=== PATIENT | male | born 1960 | race Caucasian/White ===

== ENCOUNTER 2016-05-22 13:12 | Emergency (ER) | payer SELFPAY ==
--- NOTE | 2016-05-22 14:26 | ER Document Report ---
ED Medical Screen (RME) - General Chief Complaint: Post Surgical Pain Stated Complaint: POSSIBLE INFECTION Mode of Arrival: Ambulatory Information source: Patient Notes: Patient is complaining of upper chest pain, low back pain and pain at incision site in epigastric region. He has had pain for the past week - the pain started as sharp severe intermittent pain in his lower back that has relieved some. The chest pain is described as dull, intermittent, worse with movement. He has history of bypass surgery done [place] [facility] [place] The pain at the incision site in upper abdomen that he states is from one of the chest tubes - dark yellow pus noted, causing them to change the bandages 3-4 times/daily. endorses associated erythema, swelling and pain but denies bleeding from site. Associated symptoms include fever (Tmax 101), chills, nausea, SOB, vomiting x1 episode, diarrhea ut denies dysuria. He has tried aleve, ibuprofen and tylenol which is not providing relief. Currently on plavix. TRAVEL OUTSIDE OF THE U[place]S. IN LAST 30 DAYS: No - Related Data Allergies/Adverse Reactions: Penicillins Allergy (Unknown, Verified 05/22/16 13:21) Past Medical History - Past Medical History Cardiac Medical History: Reports: Hx Hypercholesterolemia, Hx Hypertension Denies: Hx Coronary Artery Disease Traumatic Medical History: Reports: Hx Fractures - skull Past Surgical History: Reports: Other - bladder - Immunizations Hx Diphtheria, Pertussis, Tetanus Vaccination: No Review of Systems - Review of Systems Constitutional: See HPI Cardiovascular: See HPI Respiratory: See HPI Skin: See HPI Physical Exam - Vital signs Vitals: Temp Pulse Resp BP Pulse Ox 97.4 F 75 20 159/87 H 98 05/22/16 13:17 05/22/16 13:17 05/22/16 13:17 05/22/16 13:17 05/22/16 13:17 - Notes Notes: General: appears comfortable, steady gait, VSS. Skin: Multiple incisional scars noted to upper chest and abdomen. 1.5 cm incision noted with erythema, yellow drainage, warmth and tender to palpation. Course - Re-evaluation Re-evalutation: 05/22/16 14:28 Patient seen and examined. VSS. Significant cardiac history with recent CABG on 04/26/16. Ordered lab work, ekg, chest xray. Currently on plavix. - Vital Signs Vital signs: Temp Pulse Resp BP Pulse Ox 97.4 F 75 20 159/87 H 98 05/22/16 13:17 05/22/16 13:17 05/22/16 13:17 05/22/16 13:17 05/22/16 13:17
[2016-05-22] MEDS ORDERED: ACETAMINOPHEN 325 MG TABLET PO ONE (14:30)
--- NOTE | 2016-05-22 15:32 | ER Document Report ---
ED General - General Chief Complaint: Post Surgical Pain Stated Complaint: POSSIBLE INFECTION Time seen by provider: 15:27 Mode of Arrival: Ambulatory Information source: Patient, Relative TRAVEL OUTSIDE OF THE U.S. IN LAST 30 DAYS: No - HPI Onset: Other - pt states he has had pus draining from one of the incision sites from the CABG surgery he had last month at [facility]. He denies fever. He has had brief twinges of chest discomfort after the surgery but nothing sustained. Has had some "kidney pain " over the past few days, but denies dysuria, hematuria - Related Data Allergies/Adverse Reactions: Penicillins Allergy (Unknown, Verified 05/22/16 13:21) Sulfa (Sulfonamide Antibiotics) Allergy (Verified 05/22/16 15:59) Past Medical History - General Information source: Patient, Relative - Social History Smoking Status: Former Smoker Cigarette use (# per day): No Chew tobacco use (# tins/day): No Smoking Education Provided: No Family History: CAD - Past Medical History Cardiac Medical History: Reports: Hx Hypercholesterolemia, Hx Hypertension Denies: Hx Coronary Artery Disease Traumatic Medical History: Reports: Hx Fractures - skull Past Surgical History: Reports: Other - bladder - Immunizations Hx Diphtheria, Pertussis, Tetanus Vaccination: No Review of Systems - Review of Systems Constitutional: No symptoms reported Cardiovascular: See HPI, Chest pain Respiratory: No symptoms reported Gastrointestinal: No symptoms reported Musculoskeletal: No symptoms reported Skin: See HPI, Other - draining wound Neurological/Psychological: No symptoms reported -: Yes All other systems reviewed and negative Physical Exam - Vital signs Vitals: Temp Pulse Resp BP Pulse Ox 97.4 F 75 20 159/87 H 98 05/22/16 13:17 05/22/16 13:17 05/22/16 13:17 05/22/16 13:17 05/22/16 13:17 - General General appearance: Appears well In distress: None - HEENT Pharynx: Normal Neck: Normal - Respiratory Respiratory status: No respiratory distress Chest status: Nontender Breath sounds: Normal Chest palpation: Other - there is a 2 cm post-op wound with yellow borders and small amount of yellow pus at the entrance. We will do wound culture today. The other post-op woounds on the chest and healing well without signs of infection. - Cardiovascular Rhythm: Regular Heart sounds: Normal auscultation - Abdominal Inspection: Normal Tenderness: Nontender - Back Back: Normal - Extremities General upper extremity: Normal inspection General lower extremity: Normal inspection - Neurological Neuro grossly intact: Yes Cognition: Normal Orientation: AAOx4 Speech: Normal Course - Re-evaluation Re-evalutation: 05/22/16 16:59 pt's exam unchanged -- we will give him a parenteral dose of abc here -- he has expressed desire to go home - Vital Signs Vital signs: Temp Pulse Resp BP Pulse Ox 97.4 F 75 14 160/89 H 99 05/22/16 13:17 05/22/16 13:17 05/22/16 15:34 05/22/16 15:34 05/22/16 15:34 - Laboratory Result Diagrams: 05/22/16 15:20 05/22/16 15:20 Laboratory results interpreted by me: 05/22/16 05/22/16 05/22/16 15:20 15:20 15:50 WBC 12.7 H RBC 4.32 L Hgb 12.4 L Hct 36.4 L Eosinophils % 17.3 H Absolute Eosinophils 2.2 H Sodium 145.8 H Urine Protein 30 H Urine Ketones TRACE H Urine Urobilinogen 2.0 H Ur Leukocyte Esterase TRACE H - EKG Interpretation by Nj EKG shows normal: Sinus rhythm - nsr with inverted T waves in V1 and 2 but no acute change Discharge - Discharge Clinical Impression: Post-operative infection Qualifiers: Encounter type: initial encounter Qualified Code(s): T81.4XXA - Infection following a procedure, initial encounter Condition: Stable Disposition: HOME, SELF-CARE Additional Instructions: rest, take meds as prescribed, return if worse Prescriptions: Clindamycin HCl [Cleocin 300 mg Capsule] 300 mg PO BID #14 capsule
[2016-05-22 15:42] LABS: ABSOLUTE BASOPHILS # (AUTO) 0.1 10^3/uL (0.0-0.2); ABSOLUTE EOSINOPHILS # (AUTO) 2.2 10^3/uL (0.0-0.6); ABSOLUTE MONOCYTES (AUTO) 0.8 10^3/uL (0.1-1.4); ABSOLUTE NEUT (AUTO) 6.5 10^3/uL (1.7-8.2); EOSINOPHILS % (AUTO) 17.3 % (0-6); HEMATOCRIT 36.4 % (37.9-51.0); HEMOGLOBIN 12.4 g/dL (13.5-17.0); HGB HCT DIFFERENCE 0.8; LYMPHOCYTES % (AUTO) 23.8 % (13-45); MEAN CORPUSCULAR HEMOGLOBIN 28.6 pg (27.0-33.4); MEAN CORPUSCULAR HGB CONC 33.9 g/dL (32.0-36.0); MEAN CORPUSCULAR VOLUME 84 fl (80-97); MONOCYTES % (AUTO) 6.4 % (3-13); RED BLOOD COUNT 4.32 10^6/uL (4.35-5.55); RED CELL DISTRIBUTION WIDTH 13.4 % (11.5-14.0); SEGMENTED NEUTROPHILS % (AUTO) 51.5 % (42-78); WHITE BLOOD COUNT 12.7 10^3/uL (4.0-10.5)
[2016-05-22 16:03] LABS: ALANINE AMINOTRANSFERASE 27 U/L (21-72); ALBUMIN 4.2 g/dL (3.5-5.0); ALKALINE PHOSPHATASE 101 U/L (38-126); ANION GAP 13 (5-19); ASPARTATE AMINO TRANSFERASE 25 U/L (17-59); BILIRUBIN,TOTAL 0.5 mg/dL (0.2-1.3); BLOOD UREA NITROGEN 18 mg/dL (7-20); CALCIUM 9.2 mg/dL (8.4-10.2); CARBON DIOXIDE 28 mmol/L (22-30); CHLORIDE 105 mmol/L (98-107); CREATINE KINASE 86 U/L (55-170); CREATININE RESULT 0.93 mg/dL (0.52-1.25); GLUCOSE 79 mg/dL (75-110); SODIUM 145.8 mmol/L (137-145); TOTAL PROTEIN 6.8 g/dL (6.3-8.2)
[2016-05-22 16:15] LABS: CREATINE KINASE MB 0.62 ng/mL (<4.55); TROPONIN I 0.013 ng/mL
[2016-05-22 16:25] LABS: APPEARANCE,URINE SLIGHTLY-CLOUDY; BILIRUBIN,URINE NEGATIVE (NEGATIVE); GLUCOSE, URINE NEGATIVE (NEGATIVE); KETONES,URINE TRACE mg/dL (NEGATIVE); LEUKOCYTE ESTERASE,URINE TRACE (NEGATIVE); NITRITE,URINE NEGATIVE (NEGATIVE); PROTEIN,URINE 30 mg/dL (NEGATIVE); URINE SPECIFIC GRAVITY 1.027
[2016-05-22] MEDS ORDERED: CEFTRIAXONE INJ 250 MG VIAL IM ONE (16:41)
[2016-05-22] MEDS ORDERED: LIDOCAINE 1% INJ-PF (10 MG/ML) 30 ML SDV INFIL ONE (16:41)
[2016-05-22 17:16] VITALS: BP 141/77
--- NOTE | 2016-05-22 22:05 | EKG REPORT ---
SEVERITY:- ABNORMAL ECG - SINUS RHYTHM PROBABLE LEFT ATRIAL ABNORMALITY NONSPECIFIC INTRAVENTRICULAR CONDUCTION DELAY CONSIDER ANTERIOR INFARCT : Confirmed by: Allan Aguilar 22-May-2016 22:04:50
== END 2016-05-22 17:41 | disposition home or self-care (01) ==
LOC: ER 13:12
DX: T81.4XXA Infection following a procedure, initial encounter (principal); E78.00 Pure hypercholesterolemia, unspecified; I10 Essential (primary) hypertension; Z88.0 Allergy status to penicillin; Z88.2 Allergy status to sulfonamides; Z87.891 Personal history of nicotine dependence; Z95.1 Presence of aortocoronary bypass graft
CPT/HCPCS: 93005; 99284; 96372; 36415; 87070; 87205; 82553; 82550; 85025; 87077; 80053; 81001; 84484; 87186; 71020; 93010; J3490; J0696

== ENCOUNTER 2017-03-03 13:37 | Inpatient (IN) | payer MEDICAID ==
[2017-03-03 14:17] LABS: ABSOLUTE BASOPHILS # (AUTO) 0.1 10^3/uL (0.0-0.2); ABSOLUTE EOSINOPHILS # (AUTO) 0.4 10^3/uL (0.0-0.6); ABSOLUTE LYMPHOCYTES (AUTO) 3.1 10^3/uL (0.5-4.7); ABSOLUTE NEUT (AUTO) 10.3 10^3/uL (1.7-8.2); BASOPHILS % (AUTO) 0.6 % (0-2); EOSINOPHILS % (AUTO) 2.5 % (0-6); HEMOGLOBIN 15.3 g/dL (13.5-17.0); HGB HCT DIFFERENCE 1.9; LYMPHOCYTES % (AUTO) 20.7 % (13-45); MEAN CORPUSCULAR HEMOGLOBIN 29.7 pg (27.0-33.4); MEAN CORPUSCULAR HGB CONC 34.7 g/dL (32.0-36.0); MEAN CORPUSCULAR VOLUME 85 fl (80-97); MONOCYTES % (AUTO) 6.9 % (3-13); RED BLOOD COUNT 5.16 10^6/uL (4.35-5.55); RED CELL DISTRIBUTION WIDTH 13.8 % (11.5-14.0); SEGMENTED NEUTROPHILS % (AUTO) 69.3 % (42-78); WHITE BLOOD COUNT 14.9 10^3/uL (4.0-10.5)
--- NOTE | 2017-03-03 14:28 | RADIOLOGY REPORT (SQ) ---
EXAM DESCRIPTION: CT HEAD WITHOUT COMPLETED DATE/TIME: 03/03/2017 2:14 pm REASON FOR STUDY: 19, COMPARISON: CT brain 07/09/2015, 05/26/2014 TECHNIQUE: Axial images acquired through the brain without intravenous contrast. Images reviewed wi th bone, brain and subdural windows. Images stored on PACS. All CT scanners at this facility use dose modulation, iterative reconstruction, and/or weight based d osing when appropriate to reduce radiation dose to as low as reasonably achievable (ALARA). [facility]: Dose Right [facility]: CareDose [facility]: Dose Right [facility]: Teradose 4D [facility]: Smart Technologies RADIATION DOSE: Up-to-date CT equipment and radiation dose reduction techniques were employed. CTDIv ol: 64.6 mGy. DLP: 1551 mGy-cm. mGy. LIMITATIONS: Motion artifact FINDINGS: Motion artifact throughout the study. On images without motion artifact, there is no gross acute large territory ischemic change. No acute hemorrhage. No mass effect or midline shift. There is an old infarct in the right caudate. Postsurgical changes over the right parietal calvarium. IMPRESSION: Limited study. No acute findings. 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 EVIDENCE OF ACUTE STROKE: NO. COMMENT: Quality ID # [id number]: Final reports with documentation of one or more dose reduction techniques (e.g., Automated exposure control, adjustment of the mA and/or kV according to patient size, use of iterative reconstruction technique) TECHNICAL DOCUMENTATION: JOB ID: [id number] [employer]- All Rights Reserved
[2017-03-03 14:36] LABS: ALANINE AMINOTRANSFERASE 26 U/L (21-72); ALBUMIN 4.5 g/dL (3.5-5.0); ALKALINE PHOSPHATASE 85 U/L (38-126); ANION GAP 12 (5-19); ASPARTATE AMINO TRANSFERASE 28 U/L (17-59); BILIRUBIN,DIRECT 0.4 mg/dL (0.0-0.4); BILIRUBIN,TOTAL 0.6 mg/dL (0.2-1.3); BLOOD UREA NITROGEN 14 mg/dL (7-20); CALCIUM 9.7 mg/dL (8.4-10.2); CARBON DIOXIDE 24 mmol/L (22-30); CHLORIDE 107 mmol/L (98-107); CREATININE RESULT 1.17 mg/dL (0.52-1.25); GLUCOSE 89 mg/dL (75-110); POTASSIUM 4.2 mmol/L (3.6-5.0); SODIUM 143.4 mmol/L (137-145); TOTAL PROTEIN 7.6 g/dL (6.3-8.2)
[2017-03-03] MEDS ORDERED: CALCIUM GLUCONATE 1000 MG/10 ML INJ IV ONE (15:21)
[2017-03-03] MEDS ORDERED: NORMAL SALINE 1000 ML 1,000 ML IV ONE (15:21)
--- NOTE | 2017-03-03 15:21 | ER Document Report ---
ED General - General Chief Complaint: Possible Overdose Stated Complaint: POSSIBLE OVERDOSE Time Seen by Provider: 03/03/17 13:54 Information source: Patient, Relative, Emergency Med Personnel Notes: Patient is a 56-year-old male with past medical history as recorded to supposedly took an unknown quantity of Benadryl on blood pressure medication pills secondary to an intentional overdose. This was obtained by EMS as well as by calling his formal at [phone]. She supposedly "left him" around 4 days ago. She states that he has history of suicidal ideations. She states the patient has had no recent infections, nausea, vomiting, or diarrhea. She is uncertain which medications he took and how many he took. TRAVEL OUTSIDE OF THE U[place]S. IN LAST 30 DAYS: No - HPI Onset: Just prior to arrival Onset/Duration: Sudden Quality of pain: No pain Severity: Severe Pain Level: Denies Associated symptoms: Other - Unable to obtain secondary to patient's condition Exacerbated by: Other - Unable to obtain secondary to patient's condition Relieved by: Other - Unable to obtain secondary to patient's condition Similar symptoms previously: No - Related Data Allergies/Adverse Reactions: Penicillins Allergy (Unknown, Verified 05/22/16 13:21) Sulfa (Sulfonamide Antibiotics) Allergy (Verified 05/22/16 15:59) Past Medical History - General Information source: Patient - Social History Smoking Status: Unknown if Ever Smoked Cigarette use (# per day): No - Unable to obtain secondary to patient's condition Chew tobacco use (# tins/day): No - Unable to obtain secondary to patient's condition Smoking Education Provided: No - Unable to obtain secondary to patient's condition Frequency of alcohol use: None - Unable to obtain secondary to patient's conditionUnable to obtain secondary to patient's condition Drug Abuse: None - Unable to obtain secondary to patient's condition Family History: CAD - Past Medical History Cardiac Medical History: Reports: Hx Heart Attack, Hx Hypercholesterolemia, Hx Hypertension Denies: Hx Coronary Artery Disease Traumatic Medical History: Reports: Hx Fractures - skull Past Surgical History: Reports: Hx Cardiac Surgery - 5 vessel bypass, Other - bladder - Immunizations Hx Diphtheria, Pertussis, Tetanus Vaccination: No Review of Systems - Review of Systems -: Yes ROS unobtainable due to patient's medical condition Physical Exam - Vital signs Notes: Reviewed vital signs and nursing note as charted by RN. CONSTITUTIONAL: Alert with mumbling answers. I am unable to identify exactly what the patient is stating. He appears to be protecting his airway HEAD: Normocephalic; atraumatic EYES: Sclerae non-icteric ENT: Moist mucous membranes; pharynx without lesions noted NECK: Supple without meningismus; non-tender CARD: Regular rate and rhythm; no murmurs, no clicks, no rubs, no gallops; symmetric distal pulses RESP: Normal chest excursion without splinting or tachypnea; breath sounds clear and equal bilaterally ABD/GI: Normal bowel sounds; non-distended; soft, non-tender BACK: The back appears normal and is non-tender to palpation EXT: Normal ROM in all joints; non-tender to palpation; no cyanosis, no effusions, no edema SKIN: Normal color for age and race; warm; dry; good turgor; capillary refill < 2 seconds; no acute lesions noted NEURO: CN II through XII are intact. Moves all extremities equally; Motor and sensory function intact Course - Re-evaluation Re-evalutation: 03/03/17 15:19 Given the history and physical examination the patient was immediately placed on the monitor. EKG, fluids, CT scan of the head, and labs were drawn. We were able to contact the patient's significant other at phone #[phone]. Patient appears to be protecting his airway. I am concerned about the possible beta-samantha overdose. A dose of intravenous calcium has been ordered. Vital signs are currently stable. EKG shows a heart rate of 97, possibly an accelerated junctional rhythm. 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 Old EKG from May 22, 2006 shows no obvious appreciable change to this EKG except possibly for the aVF inverted T waves. 03/03/17 15:22 Reviewing the patient's blood pressure medications it appears the patient was taking an ANDREA inhibitor with a diuretic. 03/03/17 15:23 CT scan of the head shows no acute abnormalities. 03/03/17 15:32 Patient is now answering simple questions. He denies any pain. Vitals as recorded. Patient will be admitted to the hospitalist service until the patient is able to be medically cleared. - Laboratory Result Diagrams: 03/03/17 13:54 10/14/17 13:54 Laboratory results interpreted by me: 03/03/17 03/03/17 13:54 13:54 WBC 14.9 H Absolute Neutrophils 10.3 H Salicylates < 1.0 L Acetaminophen < 10 L Critical Care Note - Critical Care Note Total time excluding time spent on procedures (mins): 40 Discharge - Discharge Clinical Impression: Overdose Qualifiers: Encounter type: initial encounter Injury intent: intentional self-harm Qualified Code(s): T50.902A - Poisoning by unspecified drugs, medicaments and biological substances, intentional self-harm, initial encounter Condition: Fair Disposition: ADMITTED INPATIENT Admitting Provider: Hospitalist Unit Admitted: [facility]
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
[2017-03-03] MEDS ORDERED: IPRATROPIUM/ALBUTEROL 0.5-2.5 MG/3 ML AMPUL NEB PRN (15:58)
[2017-03-03] MEDS ORDERED: PROMETHAZINE HCL INJ 25 MG/1 ML VIAL IV PRN (16:07)
[2017-03-03] MEDS ORDERED: ONDANSETRON HCL INJ/PF 4 MG/2 ML SDV IV PRN (16:07)
[2017-03-03] MEDS ORDERED: FOLIC ACID 1 MG TABLET PO ONE (16:45)
[2017-03-03] MEDS ORDERED: THIAMINE HCL 100 MG TABLET PO ONE (17:00)
--- NOTE | 2017-03-03 17:08 | HISTORY AND PHYSICAL E ---
History and Physical NAME: SIMIN DIANE : 1960 AGE: 56Y ADMITTED: 03/03/2017 ROOM: ED21 REASON FOR CONSULTATION: Altered mental status, drug overdose. HISTORY OF PRESENT ILLNESS: The patient is a pleasant 56-year-old male who has a past medical history of hypertension. The patient was here last year, April 2016. At that time he had chest pain and positive stress test. He was transferred to [facility]. The other history of his is hyperlipidemia. The patient was brought to the emergency room by his because of altered mental status. He had been with his for the last 4 days. He took multiple medication in suicide attempt. This included multiple Benadryl, anti-blood pressure medications, and some medications of his friend and is unknown. He was confused; however, his vital signs in the emergency room were unremarkable. He denied any fever or chills or nausea or vomiting here to give history, but he is confused. He also has some paranoia and shows restlessness and uncooperative and hallucinating. He denies alcohol use but he uses marijuana. He had a CT scan in the emergency room that was unremarkable. He received IV fluids, 1 L NS. REVIEW OF SYSTEMS: Twelve systems are difficult to obtain. PAST MEDICAL HISTORY: 1. Hypertension. 2. Hyperlipidemia. 3. Coronary artery disease status post CABG. PAST SURGICAL HISTORY: 1. CABG. 2. History of fracture ALLERGIES: 1. Penicillin. 2. Bactrim. HOME MEDICATIONS: Unknown. SOCIAL HISTORY: The patient is from his . He smokes marijuana and no drinking. FAMILY HISTORY: Coronary artery disease. PHYSICAL EXAMINATION: GENERAL: The patient is lying in bed, restless. VITAL SIGNS: Blood pressure 136/107, heart rate 72, respiratory rate 30, saturation 96%, afebrile. HEENT: Head is normocephalic, atraumatic. Pupils are equal, round and reactive to light and accommodation bilaterally. Extraocular movements are intact. No headache or dizziness. Ears: Tympanic membranes intact bilaterally. No discharge from the ear, no discharge from the nose. NECK: Supple, no increased JVD, no thyromegaly, no lymphadenopathy. CARDIOVASCULAR: Normal S1,S2. Regular rate and rhythm. No murmur, no gallop. RESPIRATORY: Good air entry bilaterally. Lungs clear. ABDOMEN: Soft, nontender, no organomegaly, no deformity. Bowel sounds active. MUSCULOSKELETAL: No edema. PERIPHERAL VASCULAR: Peripheral pulses palpable. SKIN: There is no rash. PSYCHIATRIC: Anxious, agitated. NEUROLOGIC: No seizure, no history of seizures. HEMATOLOGIC/LYMPHOCYTIC: No anemia, no easy bruising. DIAGNOSTIC DATA: Labs: White blood count 15. Sodium 143, potassium 4.2, creatinine 1.1. CT scan of the head is normal. ASSESSMENT: 1. Altered mental status, probably secondary to drug overdose, is unknown. 2. Drug overdose, possible Benadryl and antihypertensive medications. 3. Coronary artery disease, status post CABG. 4. Hyperlipidemia. 5. Hypertension. 6. Leukocytosis. PLAN: 1. The patient will be admitted. 2. We will start him on IV fluids, D5 NS at 125 mL/h. 3. Multivitamin. 4. Ativan p.r.n. 5. Morphine p.r.n. 6. Zofran 40 mg p.r.n. 7. Hydralazine p.r.n. 8. Psychiatric consult. 9. Labs tomorrow morning, we will add also PTH or TSH to the labs. TIME SPENT: One hour. DICTATING PHYSICIAN: SHANNAN MESSINA M.D. [id number] PHY#: [id number] ID: [id number] JOB#: [id number] ACCT: [id number] cc:SHANNAN MESSINA M.D. > MTDD
--- NOTE | 2017-03-03 17:29 | EKG REPORT ---
SEVERITY:- ABNORMAL ECG - ACCELERATED JUNCTIONAL RHYTHM RBBB AND LPFB : Confirmed by: Angel Shepherd MD 03-Mar-2017 17:28:37
[2017-03-03] MEDS: LANSOPRAZOLE 15 MG TAB.RAP.DR PO SCH (18:40)
[2017-03-03] MEDS: LORAZEPAM INJ 2 MG/1 ML VIAL IV PRN (18:42)
[2017-03-03] MEDS: DEXTROSE 5%-NORMAL SALINE 1,000 ML IV PRN (18:48)
[2017-03-03] MEDS: HYDRALAZINE HCL INJ/PF 20 MG/1 ML SDV IV PRN (21:14)
[2017-03-03 22:46] LABS: URINE BARBITURATES SCREEN NEGATIVE; URINE METHADONE SCREEN NEGATIVE; URINE OPIATES LOW NEGATIVE; URINE PHENCYCLIDINE SCREEN NEGATIVE
[2017-03-04] MEDS: LORAZEPAM INJ 2 MG/1 ML VIAL IV PRN (00:40)
[2017-03-04] MEDS: LANSOPRAZOLE 15 MG TAB.RAP.DR PO SCH ×2 (05:36→16:23)
[2017-03-04 05:57] LABS: ABSOLUTE BASOPHILS # (AUTO) 0.1 10^3/uL (0.0-0.2); ABSOLUTE EOSINOPHILS # (AUTO) 0.2 10^3/uL (0.0-0.6); ABSOLUTE LYMPHOCYTES (AUTO) 2.8 10^3/uL (0.5-4.7); ABSOLUTE MONOCYTES (AUTO) 0.9 10^3/uL (0.1-1.4); ABSOLUTE NEUT (AUTO) 12.4 10^3/uL (1.7-8.2); BASOPHILS % (AUTO) 0.3 % (0-2); EOSINOPHILS % (AUTO) 1.4 % (0-6); HEMATOCRIT 43.4 % (37.9-51.0); HEMOGLOBIN 14.8 g/dL (13.5-17.0); LYMPHOCYTES % (AUTO) 16.8 % (13-45); MEAN CORPUSCULAR HEMOGLOBIN 29.4 pg (27.0-33.4); MEAN CORPUSCULAR HGB CONC 34.2 g/dL (32.0-36.0); MEAN CORPUSCULAR VOLUME 86 fl (80-97); MONOCYTES % (AUTO) 5.5 % (3-13); RED BLOOD COUNT 5.05 10^6/uL (4.35-5.55); RED CELL DISTRIBUTION WIDTH 13.9 % (11.5-14.0); WHITE BLOOD COUNT 16.3 10^3/uL (4.0-10.5)
[2017-03-04 06:22] LABS: ANION GAP 12 (5-19); BLOOD UREA NITROGEN 13 mg/dL (7-20); CALCIUM 9.7 mg/dL (8.4-10.2); CARBON DIOXIDE 23 mmol/L (22-30); CHLORIDE 109 mmol/L (98-107); GLUCOSE 103 mg/dL (75-110); POTASSIUM 3.7 mmol/L (3.6-5.0); SODIUM 144.4 mmol/L (137-145)
[2017-03-04] MEDS: DEXTROSE 5%-NORMAL SALINE 1,000 ML IV PRN ×2 (08:16→16:23)
--- NOTE | 2017-03-04 08:33 | PROGRESS NOTE E ---
Progress Note NAME: SIMIN DIANE : 1960 AGE: 56Y DATE: 03/04/2017 ROOM: 323 SUBJECTIVE: The patient is a 56-year-old male, who has a past medical history of hypertension. He has coronary artery disease, had CABG. The patient was admitted yesterday with drug overdose. It is unknown what he took. Probably he took Benadryl and antihypertensive medications. Today, he is more awake, alert, oriented. The patient was seen briefly yesterday by psychiatrist in the ER and they wanted the patient medically cleared. He is feeling much better today. OBJECTIVE: GENERAL: Patient lying in bed, comfortable. Not in distress. VITAL SIGNS: Blood pressure 185/105, temperature 98, respirations 28, heart rate 71, saturation 100% on room air. HEENT: Normocephalic, atraumatic. Pupils are round, reactive, and equal to light and accommodation bilaterally. Extraocular movements intact. Ears: Tympanic membranes intact bilaterally. No discharge from the ears. No discharge from the nose. NECK: Supple. No increased JVD. No thyromegaly. No lymphadenopathy. CARDIOVASCULAR: Normal S1 and S2. Regular rate and rhythm. No murmur. No gallop. RESPIRATORY: Lungs clear. ABDOMEN: Soft. Nontender. MUSCULOSKELETAL: No edema. NEUROLOGIC: Awake, alert. DIAGNOSTIC DATA: White blood count 16, hemoglobin 14, sodium 144, potassium 3.7, creatinine 1.1. ASSESSMENT: 1. ENCEPHALOPATHY, PROBABLY SECONDARY TO DRUG OVERDOSE. 2. DRUG OVERDOSE WITH BENADRYL AND ANTIHYPERTENSIVE MEDICATION. 3. DEPRESSION, WHICH IS 5/10. 4. LEUKOCYTOSIS. 5. HYPERTENSION, POORLY CONTROLLED. PLAN: We will continue IV fluids and continue monitoring. Physical therapy. Control his blood pressure. Await psychiatric evaluation. DICTATING PHYSICIAN: SHANNAN MESSINA M.D. [id number] PHY#: [id number] ID: [id number] JOB#: [id number] ACCT: [id number] cc: >
[2017-03-04] MEDS: LISINOPRIL 10 MG TABLET PO SCH (08:34)
[2017-03-04] MEDS: ENOXAPARIN SODIUM INJ 40 MG/0.4 ML DISP.SYRIN SUBCUT SCH (09:18)
[2017-03-04] MEDS: THIAMINE HCL 100 MG TABLET PO SCH (09:19)
[2017-03-04] MEDS: MULTIVITAMIN TABLET PO SCH (09:19)
[2017-03-04] MEDS: FOLIC ACID 1 MG TABLET PO SCH (09:19)
[2017-03-04] MEDS: HYDRALAZINE HCL INJ/PF 20 MG/1 ML SDV IV PRN (09:19)
[2017-03-04] MEDS ORDERED: HYDRALAZINE HCL 10 MG TABLET PO ONE (11:30)
[2017-03-04] MEDS ORDERED: CITALOPRAM HYDROBROMIDE 20 MG TABLET PO ONE (17:00)
[2017-03-05] MEDS: HYDRALAZINE HCL INJ/PF 20 MG/1 ML SDV IV PRN (04:13)
[2017-03-05 06:17] LABS: ABSOLUTE BASOPHILS # (AUTO) 0.1 10^3/uL (0.0-0.2); ABSOLUTE EOSINOPHILS # (AUTO) 0.4 10^3/uL (0.0-0.6); ABSOLUTE LYMPHOCYTES (AUTO) 2.6 10^3/uL (0.5-4.7); ABSOLUTE MONOCYTES (AUTO) 0.9 10^3/uL (0.1-1.4); BASOPHILS % (AUTO) 0.8 % (0-2); EOSINOPHILS % (AUTO) 2.7 % (0-6); HEMATOCRIT 42.5 % (37.9-51.0); HEMOGLOBIN 14.5 g/dL (13.5-17.0); LYMPHOCYTES % (AUTO) 18.8 % (13-45); MEAN CORPUSCULAR HEMOGLOBIN 29.5 pg (27.0-33.4); MEAN CORPUSCULAR HGB CONC 34.1 g/dL (32.0-36.0); MEAN CORPUSCULAR VOLUME 87 fl (80-97); MONOCYTES % (AUTO) 6.2 % (3-13); RED BLOOD COUNT 4.91 10^6/uL (4.35-5.55); SEGMENTED NEUTROPHILS % (AUTO) 71.5 % (42-78)
[2017-03-05 06:30] LABS: ALBUMIN 3.9 g/dL (3.5-5.0); ANION GAP 13 (5-19); BLOOD UREA NITROGEN 15 mg/dL (7-20); CALCIUM 9.3 mg/dL (8.4-10.2); CARBON DIOXIDE 20 mmol/L (22-30); CHLORIDE 111 mmol/L (98-107); CREATININE RESULT 1.12 mg/dL (0.52-1.25); GLUCOSE 99 mg/dL (75-110); PHOSPHORUS 3.1 mg/dL (2.5-4.5); POTASSIUM 3.9 mmol/L (3.6-5.0); SODIUM 144.3 mmol/L (137-145)
[2017-03-05] MEDS: LANSOPRAZOLE 15 MG TAB.RAP.DR PO SCH ×2 (07:00→16:50)
[2017-03-05] MEDS: LISINOPRIL 10 MG TABLET PO SCH (08:14)
[2017-03-05] MEDS ORDERED: METOPROLOL SUCCINATE 25 MG TAB.SR.24H PO ONE (08:15)
[2017-03-05] MEDS ORDERED: CITALOPRAM HYDROBROMIDE 20 MG TABLET PO SCH (10:00)
[2017-03-05] MEDS: MULTIVITAMIN TABLET PO SCH (10:34)
[2017-03-05] MEDS: THIAMINE HCL 100 MG TABLET PO SCH (10:34)
[2017-03-05] MEDS: FOLIC ACID 1 MG TABLET PO SCH (10:34)
[2017-03-05] MEDS: ENOXAPARIN SODIUM INJ 40 MG/0.4 ML DISP.SYRIN SUBCUT SCH (10:36)
[2017-03-05] MEDS: DEXTROSE 5%-NORMAL SALINE 1,000 ML IV PRN ×2 (10:45)
--- NOTE | 2017-03-05 16:18 | PDOC DISCHARGE SUMMARY ---
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 Resolved (2) Drug overdose, multiple drugs Summary: At this point it is unclear whether this was an intentional overdose or not. The patient was placed on IVC papers. He was evaluated by psychiatry on the day of discharge and his IVC was rescinded. He will follow-up as an outpatient. (3) Depression Summary: He has been started on citalopram (4) Coronary artery disease Summary: Status post recent CABG. Stable. He will resume his home medications (5) Hyperlipidemia Summary: Continue home regimen (6) Hypertension Summary: Continue home regimen (7) Leukocytosis Summary: Likely reactive. No evidence of infection - Additional Information Resuscitation Status: Full Code Discharge Diet: Cardiac Discharge Activity: Activity As Tolerated, Balance Activity w/Rest, Slowly Increase Activity Home Medications: Citalopram Hydrobromide [Celexa 20 mg Tablet] 20 mg PO DAILY #30 tablet Lisinopril [Prinivil 10 mg Tablet] 10 mg PO DAILY@0900 #30 tablet 03/05/17 History of Present Illness History of Present Illness: SIMIN DIANE is a 56 year old male who presented to the emergency room with altered mental status Hospital Course Hospital Course: The patient is a pleasant 56-year-old male with a past medical history significant for hypertension, hyperlipidemia and coronary artery disease. In April 2016 the patient presented to the emergency room here with chest pain and a positive stress test. He was transferred to [facility] where he underwent CABG as he was found to have multivessel disease. Since that time the patient has been somewhat depressed. He had been having marital difficulties at home and apparently took multiple medications and what appeared to be possible suicide attempt. He took multiple Benadryl as well as anti-blood pressure medications and some medications of his friends which were unknown at the time of admission. When he presented to the he was brought to the emergency room he was confused and I am unable to give an accurate history. He was admitted to the hospital and placed under IVC papers. Over the next couple of days the patient's encephalopathy resolved. He was seen by psychiatry and he has been started on antidepressive medication. The patient states that he and his are doing much better at this point. He states that he did not intend to kill himself and he just got confused with his medications. In any event his IVC papers were rescinded today. It is felt that he is stable for discharge with close outpatient follow-up. We will make an appointment with his primary care provider and write prescriptions for his depression medicine going forward. At this point maximum hospital benefits been reached. Patient will be discharged home today in stable condition. Physical Exam Vital Signs: Temp Pulse Resp BP Pulse Ox 98.7 F 59 L 16 161/83 H 98 03/05/17 15:10 03/05/17 15:10 03/05/17 15:10 03/05/17 15:10 03/05/17 15:10 Intake & Output 03/04/17 03/05/17 03/06/17 06:59 06:59 06:59 Intake Total 900 4150 400 Output Total 525 700 300 Balance 375 3450 100 Weight 90.6 kg 92.2 kg General appearance: PRESENT: no acute distress, well-developed, well-nourished Head exam: PRESENT: atraumatic, normocephalic Mouth exam: PRESENT: moist, tongue midline Respiratory exam: PRESENT: clear to auscultation neal. ABSENT: rales, rhonchi, wheezes Cardiovascular exam: PRESENT: RRR. ABSENT: diastolic murmur, rubs, systolic murmur GI/Abdominal exam: PRESENT: normal bowel sounds, soft. ABSENT: distended, guarding, mass, organolmegaly, rebound, tenderness Rectal exam: PRESENT: deferred Extremities exam: PRESENT: full ROM. ABSENT: calf tenderness, clubbing, pedal edema Neurological exam: PRESENT: alert, awake, oriented to person, oriented to place , oriented to time, oriented to situation, CN II-XII grossly intact. ABSENT: motor sensory deficit Psychiatric exam: PRESENT: appropriate affect, normal mood. ABSENT: homicidal ideation, suicidal ideation Skin exam: PRESENT: dry, intact, warm. ABSENT: cyanosis, rash Results Laboratory Results: 03/05/17 05:23 03/05/17 05:23 03/05/17 03/05/17 05:23 05:23 WBC 14.0 H RBC 4.91 Hgb 14.5 Hct 42.5 MCV 87 MCH 29.5 MCHC 34.1 RDW 14.0 Plt Count 241 Seg Neutrophils % 71.5 Lymphocytes % 18.8 Monocytes % 6.2 Eosinophils % 2.7 Basophils % 0.8 Absolute Neutrophils 10.0 H Absolute Lymphocytes 2.6 Absolute Monocytes 0.9 Absolute Eosinophils 0.4 Absolute Basophils 0.1 Sodium 144.3 Potassium 3.9 Chloride 111 H Carbon Dioxide 20 L Anion Gap 13 BUN 15 Creatinine 1.12 Est GFR ( Amer) > 60 Est GFR (Non-Af Amer) > 60 Glucose 99 Calcium 9.3 Phosphorus 3.1 Albumin 3.9 Impressions: Head CT 03/03/17 13:55 IMPRESSION: Limited study. No acute findings. 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 EVIDENCE OF ACUTE STROKE: NO. Qualifiers PATEINT BEING DISCHARGED WITH ANY OF THE FOLLOWING DIAGNOSIS?: No Plan Time Spent: Greater than 30 Minutes
[2017-03-05 16:27] VITALS: BP 179/100
[2017-03-05] MEDS ORDERED: INFLUENZA ADLT QUAD (36MOS+) 2017-18 VAC 0.5 ML SYR IM PRN (16:30)
== END 2017-03-05 17:49 | disposition home or self-care (01) | DRG 917 ==
LOC: ER 13:37 → UNDOADMIN 15:53 → EH 15:53 → 3W 17:13
PROVIDERS: ADMIT Internal Medicine; ATTEND Internal Medicine
PROC: 3E0F73Z Introduction of Anti-inflammatory into Respiratory Tract, Via Natural or Artificial Opening (ICD-10-PCS; principal; 2017-03-04)
PROC: 3E0234Z Introduction of Serum, Toxoid and Vaccine into Muscle, Percutaneous Approach (ICD-10-PCS; 2017-03-04)
DX: T50.904A Poisoning by unspecified drugs, medicaments and biological substances, undetermined, initial encounter (principal); G92 Toxic encephalopathy; Y92.9 Unspecified place or not applicable; F32.9 Major depressive disorder, single episode, unspecified; I10 Essential (primary) hypertension; E78.00 Pure hypercholesterolemia, unspecified; I25.10 Atherosclerotic heart disease of native coronary artery without angina pectoris; E78.5 Hyperlipidemia, unspecified; I25.2 Old myocardial infarction; Z95.1 Presence of aortocoronary bypass graft; Z63.5 Disruption of family by separation and divorce; Z88.0 Allergy status to penicillin; Z88.2 Allergy status to sulfonamides; Z82.49 Family history of ischemic heart disease and other diseases of the circulatory system
CPT/HCPCS: 36415; 70450; 80048; 80053; 80069; 80307; 82550; 84443; 84484; 85025; 90686; 93005; 93010; 99291; J0360; J0610; J1650; J2060; J3490; J7030

== ENCOUNTER 2017-03-06 12:15 | Emergency (ER) | payer OTHER, MEDICAID ==
--- NOTE | 2017-03-06 12:29 | ER Document Report ---
ED Medical Screen (RME) - General Chief Complaint: Psych Problem Stated Complaint: PSYCH EVAL Time Seen by Provider: 03/06/17 12:28 Notes: Patient states that he is having thoughts of wanting to kill himself. He also states that he is having pain in his flanks bilaterally and has been having some problems urinating. He was brought in by mobile crisis. TRAVEL OUTSIDE OF THE [place] IN LAST 30 DAYS: No - Related Data Allergies/Adverse Reactions: Penicillins Allergy (Unknown, Verified 03/06/17 12:20) Sulfa (Sulfonamide Antibiotics) Allergy (Verified 03/06/17 12:20) Past Medical History - Past Medical History Cardiac Medical History: Reports: Hx Heart Attack, Hx Hypercholesterolemia, Hx Hypertension Denies: Hx Coronary Artery Disease Renal/ Medical History: Denies: Hx Peritoneal Dialysis Traumatic Medical History: Reports: Hx Fractures - skull Past Surgical History: Reports: Hx Cardiac Surgery - 5 vessel bypass, Other - bladder - Immunizations Hx Diphtheria, Pertussis, Tetanus Vaccination: No History of Influenza Vaccine for 02/2017 - 07/2017 Season: No Physical Exam - Vital signs Vitals: Temp Pulse BP Pulse Ox 98.6 F 75 165/93 H 97 03/06/17 12:19 03/06/17 12:19 03/06/17 12:19 03/06/17 12:19 Course - Vital Signs Vital signs: Temp Pulse Resp BP Pulse Ox 98.6 F 75 165/93 H 97 03/06/17 12:19 03/06/17 12:19 03/06/17 12:19 03/06/17 12:19
--- NOTE | 2017-03-06 12:59 | ER Document Report ---
Addendum entered and electronically signed by SOFIYA STARK LPC 03/07/17 09: 07: ED Psych Disorder / Suicide - General Chief Complaint: Psych Problem Stated Complaint: PSYCH EVAL Time Seen by Provider: 03/06/17 12:28 TRAVEL OUTSIDE OF THE [place] IN LAST 30 DAYS: No - HPI Notes: Conducted check in with patient who is a 56 year old male at [facility] ER. Patient was recommended for discharge last night; however, remained in the Department overnight. Patient this morning denies suicidal ideations, and states he has spoken with his case finishing machine adjuster from [place] and is awaiting transportation to the [facility]. Patient states he can wait in the lobby. Patient is A&O. Mood is euthymic with normal smiling affect. Patient denies suicidal/homicidal ideations, intent, plan, or means. Patient denies A/V H; delusions not noted. Thought processes were goal oriented towards inpatient. Conversational speech was within normal limits for rate, tone, and prosody. Intellectual abilities were estimated within average range. Attention and focus were fair. Insight, judgment, and impulse control were poor. Patient remains psychiatrically cleared for discharge. Patient is recommended to follow up with an outpatient provider of his choice. I consulted with Dr. Newman in regards to the care and management of this patient. - Related Data Allergies/Adverse Reactions: Penicillins Allergy (Unknown, Verified 03/06/17 12:20) Sulfa (Sulfonamide Antibiotics) Allergy (Verified 03/06/17 12:20) Home Medications: Current Home Medications No Home Medications 03/06/17 [History] Discharge - Discharge Clinical Impression: Suicidal ideation Depression Qualifiers: Depression Type: unspecified Qualified Code(s): F32.9 - Major depressive disorder, single episode, unspecified Condition: Stable Disposition: HOME, SELF-CARE Additional Instructions: Depression Your evaluation reveals that you have mental depression. While symptoms may be vague, they often include disturbance of sleep, fatigue, loss of appetite , and general loss of interest in life. While depression may be a side effect of drugs, or a reaction to a major change in your life, many cases have no known cause. If depression is acute, and related to a major loss in your life, you can expect it to clear completely with time. If you have been depressed a long time , are prone to repeated bouts of depression or low mood, or have been thinking of suicide, get help. Depression can be treated with anti-depressant medication and counselling. Long-term depression will often take a few weeks to clear, even with appropriate medication. Follow-up care is important. Contact your physician, the hospital emergency center, crisis line, or your counsellor if you are losing control or having self-destructive thoughts. Referrals: [facility] [Provider Group] - Follow up as needed Original Note: ED Psych Disorder / Suicide <MARGARITA ROGEL - Last Filed: 03/06/17 19:02> - General Information source: Patient, [facility] Records TRAVEL OUTSIDE OF THE [place] IN LAST 30 DAYS: No - HPI Patient complains to provider of: Suicidal ideation Onset: Just prior to arrival Onset was: Sudden Suicide Risk Factors: Chronic illness - bypass surgeryu, Depressed, Lack of social support, Other - forced him to leave this am Normal mood: Yes Associated symptoms: Normal affect, Normal mood, Depressed Similar symptoms previously: Yes - discharged yesterday from the floor Recently seen / treated by doctor: Yes - discharged yesterday from the floor <SOFIYA STARK - Last Filed: 03/07/17 09:01> <LINDA HASSAN - Last Filed: 03/07/17 09:28> - General Chief Complaint: Psych Problem Stated Complaint: PSYCH EVAL Time Seen by Provider: 03/06/17 12:28 Notes: Patient says that he is feeling suicidal. He called mobile crisis who brought him here. Patient just spent 3 days in this hospital for an overdose and suicidal ideation. He was discharged home yesterday. Says his kicked him out of the house and he has no place to go now. There will be a bed available at the longterm tomorrow. Patient denies attempting any injury to himself at this time. No chest pains. Denies shortness of breath. Denies any vomiting or diarrhea. No fevers. (MARGARITA ROGEL) - HPI Notes: Patient is a 56-year-old male who presents today via mobile crisis after he made passive suicidal statements secondary to an argument with his . Note patient was just discharged from [facility] yesterday where he was admitted due to an intentional Benadryl overdose March 03. Patient was seen by this department multiple times throughout his stay and was cleared yesterday to [facility]-up with [facility] for [facility] and continued pharmacological intervention of Celexa 20 mg daily. Patient today states he returned home and his was nagging him all night. He states she told him to leave and they continue to argue. He states he did leave today and immediately thought about killing himself so he would no longer have to deal with his stressors. Note his stressors do include a recent quadruple bypass surgery April 2016, and to secure gainful employment, and his marital strife. Patient states after he left his called the police and accused him of stealing belongings, which was unsubstantiated. Patient states he is aware his cannot law fully evict him from the home; however, states she will continue to push his buttons until he puts his hands on her and then he will be arrested. Patient states he does not want to get to that point. Patient states he has a bed beginning tomorrow morning at the [facility] in [place] and needs a place to stay tonight. [facility] Breanna Goyal : States she was called to the home this morning where the patient stated he wanted to commit suicide. She states she did secure him a bed at [facility] in [place] and a van will present to transport him as early as 8 AM tomorrow morning. Mobile crisis workers states she needs a safe place for the patient to stay overnight. Worker states she was concerned if the patient went to the homeless longterm he would choose to leave. Discussed with mobile [facility] worker that the emergency room is not a hotel and should not be used as such. Patient is alert and oriented. Mood as reported by patient is depressed, but presents euthymic with smiling affect. patient reports suicidal ideations although denies intent. Patient states he would overdose again. Patient reports he does not want to deal with his stressors specifically his and cannot be homeless in his "condition." Patient states due to his heart he cannot be out on the streets. She denies auditory visual hallucinations; delusions not noted. Thought processes were goal oriented towards remaining in the emergency department. Conversational speech was within normal limits for rate, tone, and prosody. Intellectual abilities were estimated within average range. Attention and focus were fair. Insight, judgment, impulse control were poor. Unspecified depressive disorder Homelessness Patient is psychiatrically cleared for discharge. Patient presents without a place to stay and reports suicidal ideations. Notes patient was seen in discharge yesterday at which time he denied suicidal ideations. Patient acknowledges that he had an argument with his who told him to leave the home. Patient's reports are incongruent. Example, patient states he wants to commit suicide; however, is concerned to sleep on the street with his heart condition. His concern for his overall health suggest he does not want to . Patient's presentation is more congruent with attempting to meet his basic needs by misuse of the emergency medical system. Will attempt to coordinate a bed for the patient at the homeless longterm to assist him for the evening until he can go to his voluntary placement tomorrow at the [facility]. (SOFIYA STARK) - Related Data Allergies/Adverse Reactions: Penicillins Allergy (Unknown, Verified 03/06/17 12:20) Sulfa (Sulfonamide Antibiotics) Allergy (Verified 03/06/17 12:20) Home Medications: Current Home Medications No Home Medications 03/06/17 [History] Past Medical History - Social History Smoking Status: Current Every Day Smoker Family History: Reviewed & Not Pertinent - Past Medical History Cardiac Medical History: Reports: Hx Heart Attack, Hx Hypertension Endocrine Medical History: Denies: Hx Diabetes Mellitus Type 1, Hx Diabetes Mellitus Type 2 Psychiatric Medical History: Reports: Hx Depression <MARGARITA ROGEL - Last Filed: 03/06/17 19:02> - Social History Smoking Status: Current Every Day Smoker Frequency of alcohol use: None Drug Abuse: None Family History: CAD Patient has suicidal ideation: No Patient has homicidal ideation: No - Past Medical History Cardiac Medical History: Reports: Hx Heart Attack, Hx Hypercholesterolemia, Hx Hypertension Denies: Hx Coronary Artery Disease Renal/ Medical History: Denies: Hx Peritoneal Dialysis Traumatic Medical History: Reports: Hx Fractures - skull Past Surgical History: Reports: Hx Cardiac Surgery - 5 vessel bypass, Other - bladder - Immunizations Hx Diphtheria, Pertussis, Tetanus Vaccination: No <SOFIYA STARK - Last Filed: 03/07/17 09:01> Review of Systems <MARGARITA ROGEL - Last Filed: 03/06/17 19:02> <SOFIYA STARK - Last Filed: 03/07/17 09:01> <LINDA HASSAN - Last Filed: 03/07/17 09:28> - Review of Systems Notes: REVIEW OF SYSTEMS: CONSTITUTIONAL : Denies fever. EENT: Denies eye, ear, nose or mouth or throat pain or other symptoms. CARDIOVASCULAR: Denies chest pain. RESPIRATORY: Denies cough, chest congestion, or shortness of breath. GASTROINTESTINAL: Denies abdominal pain or nausea, vomiting, or diarrhea. GENITOURINARY: Denies difficulty or painful urinating, urinary frequency, blood in urine. MUSCULOSKELETAL: Denies back or neck pain. Denies joint pain or swelling. SKIN: Denies rash or skin lesions. NEUROLOGICAL: Denies LOC or altered mental status. Denies headache. Denies sensory loss or motor deficits. Psychological: Says he feels depressed and suicidal. See HPI. ALL OTHER SYSTEMS REVIEWED AND NEGATIVE. (MARGARITA ROGEL) Physical Exam - Vital signs Interpretation: Normal <MARGARITA ROGEL - Last Filed: 03/06/17 19:02> <SOFIYA STARK - Last Filed: 03/07/17 09:01> <LINDA HASSAN - Last Filed: 03/07/17 09:28> - Vital signs Vitals: Temp Pulse BP Pulse Ox 98.6 F 75 165/93 H 97 03/06/17 12:19 03/06/17 12:19 03/06/17 12:19 03/06/17 12:19 - Notes Notes: PHYSICAL EXAMINATION: GENERAL: Well-appearing, in no acute distress. Vital signs are all essentially normal. HEAD: Atraumatic, normocephalic. EYES: Pupils equal round and reactive to light, extraocular movements intact. ENT: oropharynx clear without exudates. Moist mucous membranes. NECK: Normal range of motion, supple. LUNGS: Breath sounds clear and equal bilaterally. HEART: Regular rate and rhythm without murmurs. ABDOMEN: Soft, nontender. No guarding or rebound. BACK: No tenderness throughout entire back. EXTREMITIES: Normal range of motion without pain. NEUROLOGICAL: Normal speech, normal gait. Normal sensory, motor, and reflex exams. Awake, alert, and oriented x3. Cranial nerves normal. PSYCH: Somewhat depressed. SKIN: Warm, dry, no rashes. (MARGARITA ROGEL) Course - Laboratory Result Diagrams: 03/06/17 12:55 03/06/17 12:55 <MARGARITA ROGEL - Last Filed: 03/06/17 19:02> - Laboratory Result Diagrams: 03/06/17 12:55 03/06/17 12:55 <SOFIYA STARK - Last Filed: 03/07/17 09:01> - Laboratory Result Diagrams: 03/06/17 12:55 03/06/17 12:55 <LINDA HASSAN - Last Filed: 03/07/17 09:28> - Re-evaluation Re-evalutation: 03/06/17 19:07 Patient has been evaluated by mental health. It would appear that the patient is going to be kept overnight until there is a bed available at the longterm. Patient appears to be medically stable for transfer or discharge. (MARGARITA ROGEL ) - Vital Signs Vital signs: Temp Pulse Resp BP Pulse Ox 98.8 F 82 18 151/86 H 96 03/07/17 06:22 03/07/17 06:22 03/07/17 06:22 03/07/17 06:22 03/07/17 06:22 - Laboratory Laboratory results interpreted by me: 03/06/17 03/06/17 03/06/17 12:55 12:55 12:55 WBC 14.3 H Seg Neutrophils % 79.0 H Absolute Neutrophils 11.3 H Creatinine 1.32 H Est GFR (Non-Af Amer) 56 L Direct Bilirubin 0.5 H Urine Blood MODERATE H Ur Leukocyte Esterase TRACE H Salicylates < 1.0 L Acetaminophen < 10 L Discharge <MARGARITA ROGEL - Last Filed: 03/06/17 19:02> <SOFIYA STARK - Last Filed: 03/07/17 09:01> <LINDA HASSAN - Last Filed: 03/07/17 09:28> - Discharge Clinical Impression: Suicidal ideation Depression Qualifiers: Depression Type: unspecified Qualified Code(s): F32.9 - Major depressive disorder, single episode, unspecified Condition: Stable Disposition: HOME, SELF-CARE Additional Instructions: Depression Your evaluation reveals that you have mental depression. While symptoms may be vague, they often include disturbance of sleep, fatigue, loss of appetite , and general loss of interest in life. While depression may be a side effect of drugs, or a reaction to a major change in your life, many cases have no known cause. If depression is acute, and related to a major loss in your life, you can expect it to clear completely with time. If you have been depressed a long time , are prone to repeated bouts of depression or low mood, or have been thinking of suicide, get help. Depression can be treated with anti-depressant medication and counselling. Long-term depression will often take a few weeks to clear, even with appropriate medication. Follow-up care is important. Contact your physician, the hospital emergency center, crisis line, or your counsellor if you are losing control or having self-destructive thoughts. Referrals: [facility] [Provider Group] - Follow up as needed
[2017-03-06 13:07] LABS: ABSOLUTE BASOPHILS # (AUTO) 0.1 10^3/uL (0.0-0.2); ABSOLUTE EOSINOPHILS # (AUTO) 0.2 10^3/uL (0.0-0.6); ABSOLUTE LYMPHOCYTES (AUTO) 1.9 10^3/uL (0.5-4.7); ABSOLUTE MONOCYTES (AUTO) 0.8 10^3/uL (0.1-1.4); ABSOLUTE NEUT (AUTO) 11.3 10^3/uL (1.7-8.2); BASOPHILS % (AUTO) 0.5 % (0-2); EOSINOPHILS % (AUTO) 1.4 % (0-6); HEMATOCRIT 42.1 % (37.9-51.0); HEMOGLOBIN 14.3 g/dL (13.5-17.0); HGB HCT DIFFERENCE 0.8; LYMPHOCYTES % (AUTO) 13.6 % (13-45); MEAN CORPUSCULAR HEMOGLOBIN 29.4 pg (27.0-33.4); MEAN CORPUSCULAR VOLUME 87 fl (80-97); MONOCYTES % (AUTO) 5.5 % (3-13); RED BLOOD COUNT 4.87 10^6/uL (4.35-5.55); RED CELL DISTRIBUTION WIDTH 13.6 % (11.5-14.0); WHITE BLOOD COUNT 14.3 10^3/uL (4.0-10.5)
[2017-03-06 13:11] LABS: APPEARANCE,URINE CLEAR; BILIRUBIN,URINE NEGATIVE (NEGATIVE); GLUCOSE, URINE NEGATIVE (NEGATIVE); KETONES,URINE NEGATIVE (NEGATIVE); LEUKOCYTE ESTERASE,URINE TRACE (NEGATIVE); NITRITE,URINE NEGATIVE (NEGATIVE); PROTEIN,URINE NEGATIVE (NEGATIVE); URINE SPECIFIC GRAVITY 1.013; UROBILINOGEN,URINE NEGATIVE mg/dL (<2.0)
--- NOTE | 2017-03-06 13:25 | EKG REPORT ---
SEVERITY:- ABNORMAL ECG - SINUS RHYTHM PROBABLE LEFT ATRIAL ABNORMALITY RIGHT BUNDLE BRANCH BLOCK PROBABLE INFERIOR INFARCT, AGE INDETERMINATE : Confirmed by: Tia Baker MD 06-Mar-2017 13:24:39
[2017-03-06 13:27] LABS: URINE BARBITURATES SCREEN NEGATIVE; URINE METHADONE SCREEN NEGATIVE; URINE OPIATES LOW NEGATIVE; URINE PHENCYCLIDINE SCREEN NEGATIVE
[2017-03-06 13:44] LABS: ALANINE AMINOTRANSFERASE 32 U/L (21-72); ALBUMIN 4.4 g/dL (3.5-5.0); ALKALINE PHOSPHATASE 89 U/L (38-126); ANION GAP 12 (5-19); ASPARTATE AMINO TRANSFERASE 29 U/L (17-59); BILIRUBIN,DIRECT 0.5 mg/dL (0.0-0.4); BLOOD UREA NITROGEN 16 mg/dL (7-20); CALCIUM 9.7 mg/dL (8.4-10.2); CARBON DIOXIDE 25 mmol/L (22-30); CHLORIDE 107 mmol/L (98-107); CREATININE RESULT 1.32 mg/dL (0.52-1.25); GLUCOSE 88 mg/dL (75-110); POTASSIUM 4.9 mmol/L (3.6-5.0); SODIUM 143.8 mmol/L (137-145); TOTAL PROTEIN 6.9 g/dL (6.3-8.2)
[2017-03-06 13:45] LABS: ALCOHOL < 10 mg/dL (NONE DETECTED)
[2017-03-07] MEDS ORDERED: LISINOPRIL 10 MG TABLET PO ONE (09:27)
[2017-03-07 09:31] VITALS: BP 165/108
--- NOTE | 2017-03-07 09:47 | ER Document Report ---
Doctor's Note Notes: 03/07/17 09:46 The patient's blood pressure has been trending high. He is known to have high blood pressure and be noncompliant. He was given a prescription on discharge 2 days ago for lisinopril and claims he could not fill it because he has no money. He is a heavy smoker. The prescription cost $4 a month. He was given 1 dose of lisinopril now and encouraged to get his prescription for his blood pressure medication filled.
== END 2017-03-07 09:34 | disposition home or self-care (01) ==
LOC: ER 12:15
DX: F32.9 Major depressive disorder, single episode, unspecified (principal); R45.851 Suicidal ideations; I25.2 Old myocardial infarction; I10 Essential (primary) hypertension; F17.200 Nicotine dependence, unspecified, uncomplicated; Z63.0 Problems in relationship with spouse or partner; Z91.5 Personal history of self-harm; Z88.0 Allergy status to penicillin; Z88.2 Allergy status to sulfonamides; Z95.1 Presence of aortocoronary bypass graft; Z59.0 Homelessness
CPT/HCPCS: 93005; 99285; 36415; 80307 ×4; 85025; 80053; 81001; 93010; J3490

== ENCOUNTER 2017-09-06 10:23 | Emergency (ER) | payer MEDICAID ==
--- NOTE | 2017-09-06 10:56 | ER Document Report ---
ED Medical Screen (RME) - General Chief Complaint: Breathing Difficulty Stated Complaint: POSSIBLE POISONING Time Seen by Provider: 09/06/17 10:46 Mode of Arrival: Ambulatory Information source: Patient Notes: Patient is a 57-year-old male who presents to the emergency department today with complaints of elevated blood pressures, chest pain, shortness of breath, and diaphoresis. Patient mentions that his symptoms today are similar to his symptoms prior to the CABG he had in April 2016. Patient also mentions that when drinking his coffee this morning it "tasted funny". Patient states that he believes his " has several online boyfriends and he caught her this morning talking dirty to one of them". Patient states she has made comments in the past that "she wishes he would just and get out of her life". Patient states his coffee tasted like bug spray that they have at the house and he thinks that his may have tried to poison him. TRAVEL OUTSIDE OF THE [place] IN LAST 30 DAYS: No - Related Data Allergies/Adverse Reactions: Penicillins Allergy (Unknown, Verified 03/06/17 12:20) Sulfa (Sulfonamide Antibiotics) Allergy (Verified 03/06/17 12:20) Past Medical History - General Information source: Patient - Social History Cigarette use (# per day): No Chew tobacco use (# tins/day): No Frequency of alcohol use: None Drug Abuse: None Lives with: Family Family history: Reviewed & Not Pertinent - Past Medical History Cardiac Medical History: Reports: Hx Heart Attack, Hx Hypercholesterolemia, Hx Hypertension Pulmonary Medical History: Reports: Hx COPD Renal/ Medical History: Denies: Hx Peritoneal Dialysis Psychiatric Medical History: Reports: Hx Depression Traumatic Medical History: Reports: Hx Fractures - skull Past Surgical History: Reports: Hx Cardiac Surgery - 5 vessel bypass, Other - bladder - Immunizations Hx Diphtheria, Pertussis, Tetanus Vaccination: No History of Influenza Vaccine for 02/2017 - 07/2017 Season: No Review of Systems - Review of Systems Constitutional: See HPI, Diaphoresis EENT: No symptoms reported Cardiovascular: See HPI, Chest pain, Other - elevated blood pressure Respiratory: See HPI, Short of breath Gastrointestinal: No symptoms reported Genitourinary: No symptoms reported Male Genitourinary: No symptoms reported Musculoskeletal: No symptoms reported Skin: No symptoms reported Hematologic/Lymphatic: No symptoms reported Neurological/Psychological: No symptoms reported -: Yes All other systems reviewed and negative Physical Exam - Vital signs Vitals: Temp Pulse Resp BP Pulse Ox 97.8 F 72 18 178/99 H 97 09/06/17 10:29 09/06/17 10:29 09/06/17 10:29 09/06/17 10:29 09/06/17 10:29 - Notes Notes: Physical Exam: General: Alert, appears well. HEENT: Normocephalic. Atraumatic. PERRLA. Extraocular movements intact. Oropharynx clear. Neck: Supple. Respiratory: No respiratory distress. Abdominal: Normal Inspection. No distension. Extremities: Moves all four extremities. Neurological: Normal cognition. AAOx4. Normal speech. Psychological: Normal affect. Normal Mood. Skin: Warm. Dry. Normal color. Course - Vital Signs Vital signs: Temp Pulse Resp BP Pulse Ox 97.8 F 72 14 182/96 H 95 09/06/17 10:29 09/06/17 10:29 09/06/17 11:26 09/06/17 12:01 09/06/17 12:01 - Laboratory Result Diagrams: 09/06/17 11:21 09/06/17 11:21 Laboratory results interpreted by me: 09/06/17 11:21 WBC 12.8 H RDW 14.4 H Absolute Neutrophils 9.6 H Scribe Documentation - Scribe Written by Donn:: Donn Cardona, 09/06/2017 1220 acting as scribe for :: Michael
[2017-09-06] MEDS ORDERED: ASPIRIN 81 MG TABLET, CHEWABLE PO ONE (11:28)
[2017-09-06 11:37] LABS: ABSOLUTE BASOPHILS # (AUTO) 0.1 10^3/uL (0.0-0.2); ABSOLUTE EOSINOPHILS # (AUTO) 0.1 10^3/uL (0.0-0.6); ABSOLUTE LYMPHOCYTES (AUTO) 2.2 10^3/uL (0.5-4.7); ABSOLUTE MONOCYTES (AUTO) 0.8 10^3/uL (0.1-1.4); ABSOLUTE NEUT (AUTO) 9.6 10^3/uL (1.7-8.2); BASOPHILS % (AUTO) 0.6 % (0-2); HEMOGLOBIN 15.2 g/dL (13.5-17.0); LYMPHOCYTES % (AUTO) 17.3 % (13-45); MEAN CORPUSCULAR HEMOGLOBIN 28.9 pg (27.0-33.4); MEAN CORPUSCULAR HGB CONC 33.8 g/dL (32.0-36.0); MEAN CORPUSCULAR VOLUME 86 fl (80-97); MONOCYTES % (AUTO) 6.5 % (3-13); PLATELET COUNT 230 10^3/uL (150-450); RED BLOOD COUNT 5.27 10^6/uL (4.35-5.55); RED CELL DISTRIBUTION WIDTH 14.4 % (11.5-14.0); SEGMENTED NEUTROPHILS % (AUTO) 74.6 % (42-78); TOTAL CELLS COUNTED % (AUTO) 100 %; WHITE BLOOD COUNT 12.8 10^3/uL (4.0-10.5)
[2017-09-06 11:58] LABS: ALANINE AMINOTRANSFERASE 25 U/L (21-72); ALBUMIN 4.3 g/dL (3.5-5.0); ALKALINE PHOSPHATASE 86 U/L (38-126); ANION GAP 11 (5-19); ASPARTATE AMINO TRANSFERASE 26 U/L (17-59); BILIRUBIN,DIRECT 0.3 mg/dL (0.0-0.4); BILIRUBIN,TOTAL 0.4 mg/dL (0.2-1.3); BLOOD UREA NITROGEN 20 mg/dL (7-20); CALCIUM 9.3 mg/dL (8.4-10.2); CARBON DIOXIDE 25 mmol/L (22-30); CHLORIDE 107 mmol/L (98-107); CREATINE KINASE 157 U/L (55-170); GLUCOSE 98 mg/dL (75-110); POTASSIUM 3.7 mmol/L (3.6-5.0); TOTAL PROTEIN 6.9 g/dL (6.3-8.2)
--- NOTE | 2017-09-06 12:01 | RADIOLOGY REPORT (SQ) ---
EXAM DESCRIPTION: CHEST SINGLE VIEW COMPLETED DATE/TIME: 09/06/2017 11:47 am REASON FOR STUDY: cp COMPARISON: 05/22/2016 EXAM PARAMETERS: NUMBER OF VIEWS: One view. TECHNIQUE: Single frontal radiographic view of the chest acquired. RADIATION DOSE: NA LIMITATIONS: None. FINDINGS: LUNGS AND PLEURA: No opacities, masses or pneumothorax. No pleural effusion. MEDIASTINUM AND HILAR STRUCTURES: No masses. Contour normal. HEART AND VASCULAR STRUCTURES: Stable heart size. BONES: No acute findings. HARDWARE: CABG. OTHER: No other significant finding. IMPRESSION: NO ACUTE RADIOGRAPHIC FINDING IN THE CHEST. TECHNICAL DOCUMENTATION: JOB ID: [id number] [employer]- All Rights Reserved Reading location - IP/workstation name: [email or web address]
[2017-09-06 12:10] LABS: CREATINE KINASE MB 1.15 ng/mL (<4.55); TROPONIN I < 0.012 ng/mL
--- NOTE | 2017-09-06 12:37 | ER Document Report ---
ED General - General Chief Complaint: Breathing Difficulty Stated Complaint: POSSIBLE POISONING Time Seen by Provider: 09/06/17 10:46 Mode of Arrival: Ambulatory TRAVEL OUTSIDE OF THE [place] IN LAST 30 DAYS: No - HPI Patient complains to provider of: Chest pain difficulty breathing concern for poisoning Notes: Patient coming in today for acute onset of abdominal pain nausea vomiting shortness of breath chest pain substernal. Patient states started after drinking his coffee this morning patient states made his cough he knows that his coffee cup is in a different spot patient states that he drinks coffee this morning smelt like bug spray was in his coffee. Patient states he is currently undergoing a divorce and is concerned that his is poisoning him with bug spray. Otherwise patient is resting comfortably with no other symptoms. Denies any fevers chills at this time. - Related Data Allergies/Adverse Reactions: Penicillins Allergy (Unknown, Verified 03/06/17 12:20) Sulfa (Sulfonamide Antibiotics) Allergy (Verified 03/06/17 12:20) Past Medical History - General Information source: Patient - Social History Smoking Status: Current Every Day Smoker Cigarette use (# per day): No Chew tobacco use (# tins/day): No Frequency of alcohol use: None Drug Abuse: None Lives with: Family Family History: Reviewed & Not Pertinent Patient has suicidal ideation: No Patient has homicidal ideation: No - Past Medical History Cardiac Medical History: Reports: Hx Heart Attack, Hx Hypercholesterolemia, Hx Hypertension Denies: Hx Coronary Artery Disease Pulmonary Medical History: Reports: Hx COPD Endocrine Medical History: Denies: Hx Diabetes Mellitus Type 1, Hx Diabetes Mellitus Type 2 Renal/ Medical History: Denies: Hx Peritoneal Dialysis Psychiatric Medical History: Reports: Hx Depression Traumatic Medical History: Reports: Hx Fractures - skull Past Surgical History: Reports: Hx Cardiac Surgery - 5 vessel bypass, Other - bladder - Immunizations Hx Diphtheria, Pertussis, Tetanus Vaccination: No Review of Systems - Review of Systems Constitutional: No symptoms reported EENT: No symptoms reported Cardiovascular: Chest pain Respiratory: No symptoms reported Gastrointestinal: Abdominal pain, Diarrhea, Nausea, Vomiting Genitourinary: No symptoms reported Male Genitourinary: No symptoms reported Musculoskeletal: No symptoms reported Skin: No symptoms reported Hematologic/Lymphatic: No symptoms reported Neurological/Psychological: No symptoms reported -: Yes All other systems reviewed and negative Physical Exam - Vital signs Vitals: Temp Pulse Resp BP Pulse Ox 97.8 F 72 18 178/99 H 97 09/06/17 10:29 09/06/17 10:29 09/06/17 10:29 09/06/17 10:29 09/06/17 10:29 Interpretation: Hypertensive - General General appearance: Appears well, Alert - HEENT Head: Normocephalic, Atraumatic Eyes: Normal Pupils: PERRL - Respiratory Respiratory status: No respiratory distress Chest status: Nontender Breath sounds: Normal Chest palpation: Normal - Cardiovascular Rhythm: Regular Heart sounds: Normal auscultation Murmur: No - Abdominal Inspection: Normal Distension: No distension Bowel sounds: Normal Tenderness: Nontender Organomegaly: No organomegaly - Back Back: Normal, Nontender - Extremities General upper extremity: Normal inspection, Nontender, Normal color, Normal ROM , Normal temperature General lower extremity: Normal inspection, Nontender, Normal color, Normal ROM , Normal temperature, Normal weight bearing. No: Parris's sign - Neurological Neuro grossly intact: Yes Cognition: Normal Orientation: AAOx4 [place] Coma Scale Eye Opening: Spontaneous Hilda Coma Scale Verbal: Oriented Hilda Coma Scale Motor: Obeys Commands Hilda Coma Scale Total: 15 Speech: Normal Motor strength normal: LUE, RUE, LLE, RLE Sensory: Normal - Psychological Associated symptoms: Normal affect, Normal mood - Skin Skin Temperature: Warm Skin Moisture: Dry Skin Color: Normal Course - Re-evaluation Re-evalutation: 09/06/17 15:20 Patient's vital signs shows hypertension patient states that he has not taken any of his blood pressure medication in the last 2-3 weeks because he is out. We are able to find the patient was on lisinopril had chlorothiazide metoprolol. Did give the patient a refill on these medications. After waiting here in ER patient requesting to be released is that he has to walk on. Patient does not want stay any longer for any further testing. Patient laboratory studies otherwise not show any acute pathology at this time. - Vital Signs Vital signs: Temp Pulse Resp BP Pulse Ox 97.8 F 72 23 H 99/51 L 97 09/06/17 10:29 09/06/17 10:29 09/06/17 12:30 09/06/17 12:30 09/06/17 12:26 - Laboratory Result Diagrams: 09/06/17 11:21 09/06/17 11:21 Laboratory results interpreted by me: 09/06/17 11:21 WBC 12.8 H RDW 14.4 H Absolute Neutrophils 9.6 H Discharge - Discharge Clinical Impression: Noncompliance with medication regimen Chest pain, unspecified Qualifiers: Chest pain type: unspecified Qualified Code(s): R07.9 - Chest pain, unspecified Hyperlipidemia Qualifiers: Hyperlipidemia type: unspecified Qualified Code(s): E78.5 - Hyperlipidemia, unspecified Hypertension Qualifiers: Hypertension type: unspecified Qualified Code(s): I10 - Essential (primary) hypertension Condition: Good Disposition: HOME, SELF-CARE Instructions: Chest Pain of Unclear Cause ([facility]), High Blood Pressure, Requiring Treatment ([facility]) Additional Instructions: Your physical examination today is not consistent with any signs of acute pesticide poisoning. Your laboratory studies also did not show any signs to explain your chest pain. Your blood pressure was elevated more likely due to not taking her medications. I will refill her medications at this time. Please take them as prescribed return to ER for any concerning issues. Prescriptions: Simvastatin [Zocor 20 mg Tablet] 20 mg PO QHS #30 tablet Lisinopril/Hydrochlorothiazide [Lisinopril-Hctz 20-25 mg Tab] 1 each PO DAILY # 30 tablet Metoprolol Succinate [Toprol Xl] 25 mg PO DAILY #30 tab.sr.24h Forms: Return to Work
[2017-09-06 12:39] VITALS: BP 99/51
--- NOTE | 2017-09-06 23:29 | EKG REPORT ---
SEVERITY:- ABNORMAL ECG - SINUS RHYTHM PROBABLE LEFT ATRIAL ABNORMALITY RIGHT BUNDLE BRANCH BLOCK : Confirmed by: Allan Aguilar 06-Sep-2017 23:28:23
== END 2017-09-06 12:44 | disposition home or self-care (01) ==
LOC: ER 10:23
DX: R06.00 Dyspnea, unspecified (principal); R07.9 Chest pain, unspecified; E78.5 Hyperlipidemia, unspecified; I10 Essential (primary) hypertension; Z91.14 Patient's other noncompliance with medication regimen; R11.2 Nausea with vomiting, unspecified; R06.02 Shortness of breath; R10.9 Unspecified abdominal pain; E78.00 Pure hypercholesterolemia, unspecified; I25.2 Old myocardial infarction; Z95.1 Presence of aortocoronary bypass graft
CPT/HCPCS: 36415; 71045; 80053; 82550; 82553; 84484; 85025; 93005; 93010; 99285